=== PATIENT | female | born 1990 | race Caucasian/White ===

== ENCOUNTER 2018-07-27 14:04 | Emergency (ER) | payer SELFPAY ==
[~2018-07-27] VITALS: Ht 154.9 cm; Wt 49.9 kg
[2018-07-27 14:37] LABS: BILIRUBIN NEGATIVE (NEGATIVE); BLOOD 2+ (NEGATIVE); CLARITY SL CLOUDY (CLEAR); COLOR YELLOW (YELLOW); GLUCOSE NEGATIVE (NEGATIVE); KETONE NEGATIVE (NEGATIVE); LEUKO ESTERASE 2+ (NEGATIVE); NITRITE POSITIVE (NEGATIVE); UROBILINOGEN 0.2 E.U./dl (0.2-1.0)
[2018-07-27 14:54] LABS: BACTERIA 2+; RBC TNTC rbc/hpf (0-2); WBC TNTC wbc/hpf (0-5); YEAST 1+
[2018-07-27] MEDS ORDERED: SEPTDS PO (15:11)
[2018-07-27] MEDS ORDERED: ZOFRAN4 MG PO (15:11)
== END 2018-07-27 15:21 ==
LOC: ED 14:04
PROVIDERS: Nurse Practitioner Family
DX: N39.0 Urinary tract infection, site not specified (principal); Z88.0 Allergy status to penicillin

== ENCOUNTER 2019-10-17 16:15 | Emergency (ER) | payer OTHER ==
[~2019-10-17] VITALS: Ht 154.9 cm; Wt 52.2 kg
[~2019-10-17 16:15] MED LIST: SEPTDS PO; ZOFRAN4 MG PO
[2019-10-17] MEDS ORDERED: NAPROSYN500 MG PO (16:51)
[2019-10-17] MEDS ORDERED: SEPTDS PO (16:51)
== END 2019-10-17 17:12 | disposition home or self-care (01) ==
LOC: ED 16:15
DX: L02.415 Cutaneous abscess of right lower limb (principal); Z88.0 Allergy status to penicillin; Z79.2 Long term (current) use of antibiotics; Z79.899 Other long term (current) drug therapy

== ENCOUNTER 2020-03-03 19:32 | Emergency (ER) | payer OTHER ==
[~2020-03-03 19:32] MED LIST changes: +NAPROSYN500 MG PO; +VIBRAMYCIN100 MG PO
== END 2020-03-03 20:40 | disposition left against medical advice (07) ==
LOC: ED 19:32
DX: Z04.89 Encounter for examination and observation for other specified reasons (principal); Z53.21 Procedure and treatment not carried out due to patient leaving prior to being seen by health care provider

== ENCOUNTER 2020-03-20 15:52 | Inpatient (IN) | payer OTHER ==
[~2020-03-20] VITALS: Ht 154.9 cm; Wt 56.9 kg
[2020-03-20 16:16] VITALS: BP 121/78
[2020-03-20 17:47] LABS: BASO % 0.3 % (0.0-1.0); EOS % 0.2 % (1.0-4.0); HEMATOCRIT 41.8 % (37.0-47.0); LYMPH % 27.8 % (27.0-41.0); MEAN CELL VOLUME 88.4 fl (81.0-99.0); MEAN CORPUSCULAR HGB 28.5 pg (27.0-31.0); MEAN CORPUSCULAR HGB CONC 32.3 g/dl (33.0-37.0); MEAN PLATELET VOLUME 9.5 fl (9.6-12.3); MONO # 1.2 10*3/uL (0.1-1.0); MONO % 8.5 % (3.0-9.0); NEUT # 9.1 10*3/uL (2.3-7.9); NEUT % 62.9 % (47.0-73.0); PLATELET COUNT AUTOMATED 403 10*3/uL (130-400); RED BLOOD COUNT 4.73 10*6/uL (4.10-5.10); RED CELL DISTRI WIDTH 14.1 % (0-14.5); WHITE BLOOD COUNT 14.5 10*3/uL (4.8-10.8)
[2020-03-20 17:59] LABS: URINE AMPHETAMINES < 1000 (1000ng/ml); URINE BARBITURATES < 200 (200ng/ml); URINE BENZODIAZEPINES < 200 (200ng/ml); URINE CANNABINOIDS (THC) > 50 (50ng/ml); URINE COCAINE > 300 (300ng/ml); URINE METHADONE < 300 (300ng/ml); URINE OPIATES > 300 (300ng/ml)
--- NOTE | 2020-03-20 18:00 | NUR ---
DR MORROW AT BEDSIDE. ATTEMPTED IV ACCESS. FLUSHES FREELY. HAD BLOOD RETURN UPON INSERTION. PT REPORTS SITE IS PAINFUL AND WANTS A NEW SITE. PT HAS A HX OF IV DRUG USE AND VENOUS ACCESS IS POOR. ATTEMPTED A SECOND SITE WITHOUT SUCCESS. MISHA LUONG TO ATTEMPT IV ACCESS.
[2020-03-20 18:02] LABS: URINE PHENCYCLIDINE < 25 (25ng/ml)
[2020-03-20 18:03] LABS: ALBUMIN 3.8 gm/dl (3.1-4.5); ALKALINE PHOSPHATASE 59 U/L (45-117); BUN 13 mg/dl (7-24); CHLORIDE 108 mmol/L (98-107); CREATININE 0.91 mg/dL (0.55-1.02); POTASSIUM 3.6 mmol/L (3.5-5.1); SGOT/AST 16 IU/L (3-35); SGPT/ALT 47 U/L (12-78); SODIUM 140 mmol/L (136-145); TOTAL PROTEIN 7.9 gm/dL (6.4-8.2)
[2020-03-20 18:06] LABS: BETA-HCG, QUANT < 1.0 mIU/mL (1-3)
--- NOTE | 2020-03-20 18:35 | NUR ---
Time: 1839 A 27 year old FEMALE admitted to under services of BHAVIK FRANCSICO DO. Pt. arrived via bed from ER. Chief complaint: ABCESS AND OPIATE WITHDRAWL. VICTOR M HASKINS
[2020-03-20 20:00] VITALS: BP 121/71
--- NOTE | 2020-03-20 20:04 | NUR ---
MEDICATED WITH PO VISTARIL/TRAZADONE AND IV BENEDRYL ORDERED PER PT REQUEST FOR C/O EXTREME ANXIETY WITH CRYING, NOTED MANIC BEHAVIOR, INSOMNIA AND NAUSEA.
--- NOTE | 2020-03-20 20:10 | NUR ---
NICOTROL INHALER PROVIDER.
--- NOTE | 2020-03-20 21:00 | NUR ---
MEDICATIONS EFFECTIVE FOR ANXIETY, INSOMNIA, NAUSEA. PT RESTING QUIETLY.
[2020-03-21] VITALS: BP 146/64
--- NOTE | 2020-03-21 | NUR ---
Patient resting quietly with no c/o discomfort. Respirations easy and regular. Vital signs stable. No overt distress. BASSAM KENNEDY
--- NOTE | 2020-03-21 04:11 | NUR ---
MEDICATED WITH IV BENEDRYL AND PO VISTARIL ORDERED FOR C/O ANXIETY.
--- NOTE | 2020-03-21 04:18 | NUR ---
MEDCIATED WITH PO BENTYL ORDERED PER PT REQUEST FOR C/O STOMACH CRAMPING.
--- NOTE | 2020-03-21 05:18 | NUR ---
24 HR chart check completed.
--- NOTE | 2020-03-21 05:28 | NUR ---
MEDICATED WITH PO ROBAXIN ORDERED PER PT REQUEST FOR C/O CRAMPING TO LEGS.
--- NOTE | 2020-03-21 06:00 | NUR ---
MEDICATIONS SOMEWHAT EFFECTIVE FOR ANXIETY AND CRAMPING. NOW PT IS VOMITING.
--- NOTE | 2020-03-21 06:01 | NUR ---
MEDICATED WITH IV ZOFRAN ORDERED FOR VOMITING.
--- NOTE | 2020-03-21 07:00 | NUR ---
MEDICATION EFFECTIVE FOR NAUSEA.
[2020-03-21 07:53] LABS: BILIRUBIN 1+ (Negative); BLOOD Negative (Negative); CLARITY Turbid (Clear); COLOR Dark Yellow (Yellow); GLUCOSE Negative (Negative); KETONE Trace (Negative); LEUKO ESTERASE Trace (Negative); NITRITE Negative (Negative); SPECIFIC GRAVITY >= 1.030 (1.001-1.030)
[2020-03-21 08:00] VITALS: BP 111/63
[2020-03-21 08:21] LABS: BACTERIA 4+
--- NOTE | 2020-03-21 09:26 | NUR ---
PATIENT VERY AGITATED, CRYING, FUSSING. C/O STOMACH CRAMPS AND CONSTANT ANXIETY. MEDICATED WITH VISTARIL AND BENTYL ALONG WITH ROUTINE SUBUTEX. WILL MONITOR FOR EFFECTIVENESS.
[2020-03-21 12:00] VITALS: BP 101/54
--- NOTE | 2020-03-21 15:21 | NUR ---
PT MEDICATED WITH ROBAXIN, BENTYL AND VISTARIL AT THIS TIME FOR COMPLAINTS OF MUSCLE ACHES, STOMACH CRAMPS, AND ANXIETY. WILL MONITOR FOR EFFECTIVENESS.
[2020-03-21 16:00] VITALS: BP 96/44
--- NOTE | 2020-03-21 16:21 | NUR ---
PATIENT SEEMS MUCH MORE RELAXED. MEDICATION APPEARS TO HAVE BEEN EFFECTIVE. RESTING AT THIS TIME. [facility]
--- NOTE | 2020-03-21 19:30 | NUR ---
ASSUMED CARE OF PATIENT. PATIENT IS RESTING IN BED WITH EASY AND REGULAR RESPERS ON ROOM AIR. ASSESSMENT IS COMPLETE WITH NO C/O OR S/S OF DISTRESS NOTED AT THIS TIME. WILL CONTINUE TO MONITOR, SEE INTERVENTIONS.
[2020-03-21 20:00] VITALS: BP 114/79
--- NOTE | 2020-03-21 21:30 | NUR ---
PATIENT C/O RESTLESS LEGS, ANXIETY, BODY ACHES, AND INSOMNIA. CALL LIGHT IS WITHIN REACH. WILL CONTINUE TO MONITOR.
--- NOTE | 2020-03-21 21:56 | NUR ---
PRN REQUIP, VISTARIL, TRAZAODE, AND MOTRIN GIVEN FOR C/O RESTLESS LEGS, ANXIETY, INSOMNIA, AND BODY ACHES. CALL LIGHT IS WITHIN REACH. WILL MONITOR EFFECT.
--- NOTE | 2020-03-21 22:30 | NUR ---
PRN MEDICATIONS APPEAR EFFECTIVE, PATIENT IS SLEEPING WITH EASY AND REGULAR RESPERS ON ROOM AIR. CALL LIGHT IS WITHIN REACH. WILL CONTINUE TO MONITOR.
[2020-03-22] VITALS: BP 114/73
--- NOTE | 2020-03-22 02:17 | NUR ---
PATIENT AWAKENS EASILY FOR ADMINISTRATION OF 0200 SUBUTEX. SUBUTEX DROPPED ON FLOOR BY PATIENT. MEDICATION FOUND AND PLACED INTO SHARPS CONTAINER. ANOTHER SUBUTEX OBTAINED FROM [employer]. SUBUTEX TAKEN BY PATIENT. CALL LIGHT IS WITHIN REACH. WILL CONTINUE TO MONITOR.
--- NOTE | 2020-03-22 03:29 | NUR ---
CHART CHECK COMPLETE.
[2020-03-22 07:52] LABS: BASO % 0.5 % (0.0-1.0); EOS # 0.2 10*3/uL (0.0-0.4); EOS % 2.9 % (1.0-4.0); HEMATOCRIT 42.9 % (37.0-47.0); LYMPH # 3.3 10*3/uL (1.3-4.4); LYMPH % 39.9 % (27.0-41.0); MEAN CORPUSCULAR HGB 28.7 pg (27.0-31.0); MEAN PLATELET VOLUME 9.8 fl (9.6-12.3); MONO # 0.7 10*3/uL (0.1-1.0); MONO % 8.1 % (3.0-9.0); NEUT % 48.4 % (47.0-73.0); PLATELET COUNT AUTOMATED 303 10*3/uL (130-400); RED BLOOD COUNT 4.63 10*6/uL (4.10-5.10); RED CELL DISTRI WIDTH 14.6 % (0-14.5); WHITE BLOOD COUNT 8.2 10*3/uL (4.8-10.8)
[2020-03-22 07:54] LABS: MEAN CELL VOLUME 92.7 fl (81.0-99.0)
[2020-03-22 08:00] VITALS: BP 100/61
--- NOTE | 2020-03-22 08:19 | NUR ---
PATIENT MEDICATED WITH REQUIP, ROBAXIN, BENTYL, AND VISTARIL AT THIS TIME PER ORDER FOR COMPLAINTS OF RESTLESS LEGS, LEG ACHES, STMOACH CRAMPS, AND AGITATION. WILL MONITOR.
--- NOTE | 2020-03-22 09:00 | NUR ---
PT HAD LARGE EMESIS ON FLOOR AT THIS TIME, C/O NAUSEA, MEDICATED WITH ZOFRAN PER ORDER. WILL MONITOR FOR EFFECTIVENESS.
--- NOTE | 2020-03-22 09:19 | NUR ---
PER PATIENT, PRN MEDS WERE EFFECTIVE.
--- NOTE | 2020-03-22 10:00 | NUR ---
PER PATIENT, PRN MEDS HAVE BEEN EFFECTIVE. RESTING.
[2020-03-22 12:00] VITALS: BP 125/77
--- NOTE | 2020-03-22 15:19 | NUR ---
PT C/O NAUSEA, MUSCLE ACHES, AND AGITATION. MEDICATED WITH ZOFRAN, ROBAXIN, AND VISTARIL. WILL MONTOR FOR EFFECTIVENESS.
[2020-03-22 16:00] VITALS: BP 109/61
--- NOTE | 2020-03-22 16:19 | NUR ---
PATIENT STATES THAT PRN MEDICATION HAS BEEN EFFECTIVE. RESTING.
--- NOTE | 2020-03-22 19:48 | NUR ---
ASSUMED CARE OF PATIENT. PATIENT IS AAOX3 RESTING IN BED WITH EASY AND REGULAR RESPERS ON ROOM AIR. ASSESSMENT IS COMPLETE. PATIENT APPEARS RESTLESS AND IS REQUESTING NICOTINE GUM. NICOTINE GUM PROVIDED AND NICOTINE INHALER LOCKED IN WALL-A-LINDA. BED IS LOW, LOCKED, AND CALL LIGHT IS WITHIN REACH. WILL CONTINUE TO MONITOR, SEE INTERVENTIONS.
[2020-03-22 20:00] VITALS: BP 115/76
--- NOTE | 2020-03-22 21:33 | NUR ---
PRN REQUIP, MOTRIN, VISTARIL, AND TRAZADONE GIVEN AT THIS TIME FOR C/O RESTLESS LEGS, BODY ACHES, ANXIETY, AND INSOMNIA. CALL LIGHT IS WITHIN REACH. WILL MONITOR EFFECT.
--- NOTE | 2020-03-22 22:33 | NUR ---
PRN MEDICATIONS APPEAR EFFECTIVE. PATIENT IS SLEEPING WITH EASY AND REGULAR RESPERS. WILL CONTINUE TO MONITOR.
[2020-03-23] VITALS: BP 94/53
[2020-03-23 08:00] VITALS: BP 128/74
--- NOTE | 2020-03-23 08:35 | NUR ---
Spoke with Ramona from [facility] she states she was just aware of her this morning and as soon as she gathers her information she will speak to her
--- NOTE | 2020-03-23 09:03 | NUR ---
SPOKE WITH ASSOCIATE PROFESSOR OF MEDIA ARTSMELA WHO STATES SHE CALLED THE WOUND CARE CONSULT TO [facility].
--- NOTE | 2020-03-23 09:27 | NUR ---
PT OFF UNIT FOR US
--- NOTE | 2020-03-23 09:46 | NUR ---
[facility] STAFF IN TO SEE PATIENT. PATIENT IS GOING TO FOLLOW UP WITH ON DEMAND FOR HER AFTERCARE PLAN. [facility] STAFF WILL FOLLOW UP WITH PATIENT WITH HER APPOINTMENT DATE AND TIME. MICHAEL CAMARGO B.A. SPECIAL DUTY NURSE
[2020-03-23] MEDS ORDERED: METHOCARBAMOL750 M1 PO (11:35)
[2020-03-23] MEDS ORDERED: ATARAX,VISTARIL50 MG PO (11:35)
[2020-03-23] MEDS ORDERED: ZOFRAN 4 MG ED2 TAB PO (11:35)
--- NOTE | 2020-03-23 11:45 | NUR ---
REFUSED DISCHARGE WOUND PHOTOS.
--- NOTE | 2020-03-23 12:05 | NUR ---
Discharge instructions reviewed with patient/family. Patient receptive and verbalizes understanding. Follow-up care arranged. Written instructions given to patient/family. DARCIE JIN
== END 2020-03-23 12:05 | disposition home or self-care (01) | DRG 773 ==
LOC: ED 15:52 → EDHOLD 17:23 → 4E 17:23
PROVIDERS: Internal Medicine; Student in an Organized Health Care Education/Training Program; ADMIT Student in an Organized Health Care Education/Training Program; ATTEND Student in an Organized Health Care Education/Training Program
DX: F11.23 Opioid dependence with withdrawal (principal); F31.9 Bipolar disorder, unspecified; F41.9 Anxiety disorder, unspecified; M54.5 Low back pain; R10.9 Unspecified abdominal pain; D72.825 Bandemia; I51.7 Cardiomegaly; L02.414 Cutaneous abscess of left upper limb; D47.3 Essential (hemorrhagic) thrombocythemia; E87.8 Other disorders of electrolyte and fluid balance, not elsewhere classified; E83.41 Hypermagnesemia; F14.90 Cocaine use, unspecified, uncomplicated; F12.90 Cannabis use, unspecified, uncomplicated; G89.29 Other chronic pain; F17.210 Nicotine dependence, cigarettes, uncomplicated; Z71.6 Tobacco abuse counseling; Z88.0 Allergy status to penicillin; Z81.1 Family history of alcohol abuse and dependence

== ENCOUNTER → 2021-10-18 | Outpatient (CLI) | payer OTHER ==
[~2021-10-18] MED LIST changes: +ATARAX,VISTARIL50 MG PO; +METHOCARBAMOL750 M1 PO; +ZOFRAN 4 MG ED2 TAB PO
[2021-10-18 15:39] LABS: BASO % 0.2 % (0.0-1.0); EOS # 0.1 10*3/uL (0.0-0.4); HEMATOCRIT 41.2 % (37.0-47.0); LYMPH # 2.7 10*3/uL (1.3-4.4); LYMPH % 31.5 % (27.0-41.0); MEAN CELL VOLUME 86.6 fl (81.0-99.0); MEAN CORPUSCULAR HGB 29.8 pg (27.0-31.0); MEAN CORPUSCULAR HGB CONC 34.5 g/dl (33.0-37.0); MEAN PLATELET VOLUME 10.3 fl (9.6-12.3); MONO # 0.5 10*3/uL (0.1-1.0); MONO % 5.9 % (3.0-9.0); NEUT # 5.3 10*3/uL (2.3-7.9); NEUT % 61.2 % (47.0-73.0); PLATELET COUNT AUTOMATED 222 10*3/uL (130-400); RED BLOOD COUNT 4.76 10*6/uL (4.10-5.10); RED CELL DISTRI WIDTH 13.3 % (0-14.5); WHITE BLOOD COUNT 8.7 10*3/uL (4.8-10.8)
[2021-10-18 16:08] LABS: ALKALINE PHOSPHATASE 48 U/L (45-117); BUN 12 mg/dl (7-24); CHLORIDE 108 mmol/L (98-107); CREATININE 0.86 mg/dL (0.55-1.02); POTASSIUM 3.9 mmol/L (3.5-5.1); SGOT/AST 41 IU/L (3-35); SGPT/ALT 116 U/L (12-78); SODIUM 138 mmol/L (136-145); TOTAL PROTEIN 7.5 gm/dL (6.4-8.2)
[2021-10-19 08:08] LABS: HEPATITIS B SURFACE AB Reactive (.); HEPATITIS B SURFACE AG Negative (Negative)
[2021-10-19 19:06] LABS: HCV LOG10 7.013 (.); HEPATITIS C QNT See Final Results IU/mL (.)
== END | disposition home or self-care (01) ==
LOC: LAB 15:11
PROVIDERS: ATTEND Internal Medicine Gastroenterology
DX: B19.20 Unspecified viral hepatitis C without hepatic coma (principal)